=== PATIENT | male | born 2000 | race Caucasian/White ===

== ENCOUNTER 2022-07-28 08:06 | Emergency (ER) | payer OTHER ==
[~2022-07-28] VITALS: Ht 175.3 cm; Wt 67.6 kg
[~2022-07-28 08:06] MED LIST: BECL0.089 INH; MONT10TA35 PO
--- NOTE | 2022-07-28 08:29 | NUR ---
PT RECEIVED, CARE ASSUMED. PT PRESENTS SELF TO ER WITH C/O SOB, COUGH. NUZHAT LUNGS CLEAR, RESP EVEN AND UNLABORED. PT IN ROOM AWAITING TO BE SEEN BY
[2022-07-28 08:33] VITALS: BP 113/58
[2022-07-28] MEDS ORDERED: ONDA-188 SL (09:05)
[2022-07-28 09:19] VITALS: BP 127/74
--- NOTE | 2022-07-28 09:21 | NUR ---
Patient discharged with v/s stable. Written and verbal after care instructions given and explained. Patient alert, oriented and verbalized understanding of instructions. Ambulatory with steady gait. All questions addressed prior to discharge. ID band removed. Patient advised to follow up with PMD. Rx of ZOFRAN ODT given. Patient educated on indication of medication including possible reaction and side effects. Opportunity to ask questions provided and answered.
== END 2022-07-28 09:21 | disposition home or self-care (01) ==
LOC: MED 08:06
DX: B34.9 Viral infection, unspecified (principal); Z20.822 Contact with and (suspected) exposure to COVID-19; R11.2 Nausea with vomiting, unspecified; J45.909 Unspecified asthma, uncomplicated; Z79.899 Other long term (current) drug therapy
CPT/HCPCS: 99283